=== PATIENT | male | born 1990 | race Caucasian/White ===

== ENCOUNTER 2025-01-04 18:49 | Emergency (ER) | payer BC, OTHER, SELFPAY ==
[2025-01-04 19:28] VITALS: BP 154/107; BP 158/105; PULSE 72; RESP 19; TEMP 37.1; O2SAT 100; BMI 34.9
--- NOTE | 2025-01-04 20:00 | PD.EDRME ---
Rapid Medical Screening Exam RME Arrival date/time: 01/04/25 18:49 Chief Complaint: Eye Problems Vital signs: Vital Signs Temperature 98.8 F 01/04/25 19:28 Pulse Rate 72 01/04/25 19:28 Respiratory Rate 19 01/04/25 19:28 Blood Pressure 154/107 H 01/04/25 19:28 Pulse Oximetry (%) 100 01/04/25 19:28 Oxygen Delivery Method Room Air 01/04/25 19:28 Pulse ox room air is 100% Vital signs reviewed by provider: Yes RME Narrative: Patient tells me that this afternoon while driving his car he developed blurry vision in his right eye which caused him to taffy puller to the side of the road. Patient then developed anxiety after which he took Xanax and then his speech started to stammer. Also complains of numbness and tingling to his tongue. Patient tells me the blurry vision to the right eye resolved.
--- NOTE | 2025-01-04 20:02 | XR_ITS ---
Examination: CT brain head without contrast. 2-D sagittal coronal reconstructions Date and time of exam:January 04, 20255 hours INDICATIONS: Transient ischemic attack, slurred speech with right-sided deficit today CTDI: vol (mGy):53.6 DLP: (mGycm):1 to Technique: Multiple CT axial sections of the brain have been obtained, 5 mm slice thickness. Contrast has not been administered. 2-D sagittal, coronal reconstructions have been obtained Low dose protocols were performed. One or more of the following dose reduction techniques were used; automated exposure control, adjustment of the mA and/or KV according to patient size, use of iterative reconstruction technique. Findings: No significant ventricular enlargement. Intra-axial or extra-axial hemorrhage density is not seen. No mass effect or midline shift Basal cisterns are not remarkable. Fourth ventricle is midline. Cranial vault intact. Impression: Negative for acute hemorrhage, mass effect or midline shift Consider brain MRI follow-up to assess for demyelinating disease, acute ischemic change
[2025-01-04 20:36] LABS: Basophils # (Auto) 0.1 Thou/mm3 (0.0-0.2); Basophils % (Auto) 1 % (0-2.5); Eosinophils # (Auto) 0.1 Thou/mm3 (0.0-0.5); Eosinophils % (Auto) 1 % (0-10); Hematocrit 43.1 % (41.0-53.0); Hemoglobin 16.4 g/dL (13.5-16.0); Immature Granulocytes % (Auto) 0 % (0-0); Immature Granulocytes Auto 0.04 Thou/mm3 (0.00-0.00); Lymphocytes # (Auto) 2.9 Thou/mm3 (1.0-4.8); Lymphocytes % (Auto) 31 % (10-50); Mean Corpuscular HGB Conc 38.1 g/dl (31.0-37.0); Mean Corpuscular Hemoglobin 33.5 pg (25.0-35.0); Mean Corpuscular Volume 88 fL (80-100); Monocytes # (Auto) 0.7 Thou/mm3 (0.0-0.8); Monocytes % (Auto) 8 % (0-12); Neutrophils # (Auto) 5.6 Thou/mm3 (1.8-7.7); Neutrophils % (Auto) 60 % (37-80); Nucleated Red Blood Cell % 0 /100 WBC (0); Platelet Count 262 Thou/mm3 (140-440); RDW Standard Deviation 39.8 fL (35.1-43.9); Red Blood Count 4.89 Miln/mm3 (4.50-5.90); White Blood Count 9.4 Thou/mm3 (3.8-10.6)
[2025-01-04 20:54] LABS: Alanine Aminotransferase 80 U/L (10-49); Albumin, Serum 4.7 gm/dL (3.5-5.0); Albumin/Globulin Ratio 1.6 (1.2-2.2); Alkaline Phosphatase 102 U/L (46-116); Anion Gap 11 (7-16); Aspartate Amino Transferase 42 U/L (0-34); BUN/Creatinine Ratio 12 Ratio (12-20); Bilirubin,Total 0.8 mg/dL (0.3-1.2); Blood Urea Nitrogen 12 mg/dL (9-23); Calcium 10.8 mg/dL (8.3-10.6); Calcium (Corrected) 10.8 mg/dL (8.5-10.1); Carbon Dioxide 27.4 mMol/L (20.0-31.0); Chloride 101 mMol/L (98-107); Glucose 95 mg/dL (74-106); Osmolality,Calculated 277 (275-295); Sodium 139 mMol/L (136-145); Total Protein 7.7 gm/dL (5.7-8.2); Troponin I < 0.002 ng/mL (0.0-0.045); eGFR > 60 See Note
--- NOTE | 2025-01-04 21:47 | PD.EDHA ---
ED Headache RME/HPI General Chief Complaint: Eye Problems Stated Complaint: SLOWED SPEECH W/ RIGHT EYE DEFICEIT; HEADACHE; ANX Time Seen by Provider: 01/04/25 20:47 Arrival date/time: 01/04/25 18:49 Limitations: no limitations RME / HPI RME / HPI Narrative: Patient tells me that this afternoon while driving his car he developed blurry vision in his right eye which caused him to machine puller over to the side of the road. Patient then developed anxiety after which he took Xanax and then his speech started to stammer. Also complains of numbness and tingling to his tongue. Patient tells me the blurry vision to the right eye resolved. MD Complaint: headache and other (Blurry vision to the right eye) Onset (ago): hour(s) Onset description: sudden Related Data Allergies Allergy/AdvReac Type Severity Reaction Status Date / Time No Known Allergies Allergy Verified 01/04/25 18:56 Review of Systems Constitutional Constitutional: Reports system reviewed and no additional complaints, except as documented Eyes Eyes: Reports system reviewed and no additional complaints, except as documented, Denies dry eyes, Denies exophthalmos and Reports floaters Cardiovascular Cardiovascular: Denies chest pain with activity and Denies claudication ED Exam General Limitations: Present no limitations General appearance: Present alert and in no apparent distress Head Head exam: Present atraumatic Eye Eye exam: Present normal appearance, PERRL and EOMI ENT ENT exam: Present normal exam, normal oropharynx and mucous membranes moist Neck Neck exam: Present normal inspection, full ROM and trachea midline Chest Chest inspection: Present normal inspection and symmetric chest wall rise Respiratory Respiratory exam: Present normal lung sounds bilaterally Cardiovascular Cardiovascular exam: Present regular rate, normal rhythm and normal heart sounds Abdominal Exam Abdominal exam: Present soft and normal bowel sounds Extremities Exam Extremities exam: Present normal inspection and full ROM Back Exam Back exam: Present normal inspection and full ROM Neurological Exam Neurological exam: Present alert, oriented X3, CN II-XII intact and normal gait Psychiatric Psychiatric exam: Present normal affect and normal mood Skin Skin exam: Present warm, dry, intact and normal color Course Course Course Narrative: Patient will have a CT of the head, troponin, CBC, CMP. Quality Measures none Orders Category Date Time Status EKG (ED ONLY) *Do not use* NOW Care 01/04/25 20:[address] head/brain wo con Stat Exams 01/04/25 20:02 Completed EKG (ED Only) Stat Exams 01/04/25 20:04 Ordered CBC Stat Lab 01/04/25 20:18 Completed CMP [Comprehensive Metabolic Panel] Stat Lab 01/04/25 20:18 Completed Troponin I Stat Lab 01/04/25 20:18 Completed Done Vital Signs Vital signs: Vital Signs Temperature 98.8 F 01/04/25 19:28 Pulse Rate 72 01/04/25 19:28 Respiratory Rate 19 01/04/25 19:28 Blood Pressure 154/107 H 01/04/25 19:28 Pulse Oximetry (%) 100 01/04/25 19:28 Oxygen Delivery Method Room Air 01/04/25 19:28 Pulse ox room air is 100% Headache Patient data External records reviewed:: Other (specify) Clinical information provided by:: none Social determinants that could affect healthcare access:: none Patient has the following chronic illnesses:: Anxiety How is presenting disease/condition affected by chronic disease/condition?: no chronic disease Evaluation data The following diagnostics were reviewed and interpreted by me:: lab results and radiology exam(s) Lab and/or radiology exams considered but not ordered:: Lab results support discharging patient Interpretation Summary: Anxiety Medications / Prescriptions Medications or Prescriptions considered but not ordered:: Anxiety Medication administrations:: Anxiety Consultations Consultation(s) initiated? (list below): No Diagnosis Differential diagnosis headache: tension headache, subarachnoid hemorrhage and headache Most likely diagnosis given after review of the tests above:: Anxiety Admission Indicated Admission indicated?: not indicated Admission Request Was there a request for admission?: No Disposition Plan Disposition Plan: Discharge Discharge Attestation Discharge Attestation: The patient and all family members were given an opportunity to ask questions and understood the discharge instructions. Discharge instructions specifically effects, indications for sooner follow up or return to the emergency department, and the expected course of current diagnosis. Patient condition: Stable Discharge Plan Plan Patient Disposition: HOME (Self Care) Discharge Disposition comment: Patient discharged in no apparent distress Patient condition on transfer: Stable Prescriptions/Referrals Referrals: Rosa Del Rosario FNP [Primary Care Provider] - In 1 week Problem List Clinical Impression: Acute anxiety Patient/Caregiver Discharge Instructions Discharge Activity: activity as tolerated Print Language: Micronesian Stand Alone Forms: Christina Award Info., Patient Portal Info Letter SIOBHAN/JESSE Supervising Physician LYLE Supervising Physician: Nae
== END 2025-01-04 22:33 | disposition home or self-care (01) ==
PROVIDERS: Physician Assistant; Emergency Provider Emergency Medicine; PCP Nurse Practitioner Family
DX: F41.9 Anxiety disorder, unspecified (principal); R51.9 Headache, unspecified; R47.81 Slurred speech; H53.8 Other visual disturbances
CPT/HCPCS: 36415; 70450; 80053; 84484; 85025; 93005; 99284